=== PATIENT | male | born 1990 | race Hispanic/Latino ===

== ENCOUNTER 2021-10-22 11:12 | Emergency (ER) | payer SELFPAY | END 2021-10-22 11:58 | disposition home or self-care (01) | LOC: CSHERS 11:12 | DX: S99.921A Unspecified injury of right foot, initial encounter (principal); W22.8XXA Striking against or struck by other objects, initial encounter | CPT/HCPCS: 99283 ==

== ENCOUNTER 2023-01-06 18:30 | Emergency (ER) | payer SELFPAY ==
[2023-01-06] MEDS ORDERED: Metoclopramide 10 MG/10 ML UDCUP ONE (19:49)
[2023-01-06] MEDS ORDERED: Ketorolac Tromethamine 30 MG/ML VIAL ONE (19:49)
== END 2023-01-06 21:32 | disposition home or self-care (01) ==
LOC: CSHERS 18:30
DX: G43.909 Migraine, unspecified, not intractable, without status migrainosus (principal); F95.9 Tic disorder, unspecified
CPT/HCPCS: 70450; 96372; J1885

== ENCOUNTER 2023-08-01 00:36 | Emergency (ER) | payer SELFPAY | END 2023-08-01 02:10 | disposition home or self-care (01) | LOC: CSHERS 00:36 | DX: N50.812 Left testicular pain (principal) | CPT/HCPCS: 76870; 93976 ==

== ENCOUNTER 2023-11-28 01:04 | Emergency (ER) | payer SELFPAY ==
[2023-11-28] MEDS ORDERED: Ketorolac Tromethamine 30 MG (1 mL) VIAL ONE (01:33)
== END 2023-11-28 01:51 | disposition home or self-care (01) ==
LOC: CSHERS 01:04
DX: G62.9 Polyneuropathy, unspecified (principal); M79.672 Pain in left foot
CPT/HCPCS: 96372; 99283; J1885